=== PATIENT | male | born 1990 | race Hispanic/Latino ===

== ENCOUNTER 2021-09-23 20:19 | Inpatient (IN) | payer OTHER ==
[~2021-09-23] VITALS: Ht 180.3 cm; Wt 129.0 kg
[2021-09-23] MEDS ORDERED: ONDANSETRON 4MG INJ ONE (20:55)
[2021-09-23] MEDS ORDERED: 0.9%NACL 1000ML 1,000 ML IV ONE ×2 (21:00→22:30)
[2021-09-23] MEDS ORDERED: DIAZEPAM 5 MG/ML 2 ML SYG ONE (21:00)
[2021-09-23 21:01] LABS: BASOPHILS % (AUTO) 0.3 % (0.0-5.0); HEMATOCRIT 48.2 % (42-54); LYMPHOCYTES % (AUTO) 6.2 % (21.0-51.0); MEAN CORPUSCULAR HEMOGLOBIN 30.7 pg (27.0-33.0); MEAN CORPUSCULAR HGB CONC 34.4 g/dL (32.0-36.0); MEAN CORPUSCULAR VOLUME 89.1 fL (79-99); MONOCYTES % (AUTO) 6.6 % (3.0-13.0); NEUTROPHILS % (AUTO) 86.6 % (40.0-77.0); PLATELET COUNT (AUTO) 157 K/uL (130-400); RED BLOOD CELL COUNT(AUTO) 5.41 MIL/uL (4.50-6.20); RED CELL DISTRIBUTION WIDTH 12.5 % (11.0-15.5); WHITE BLOOD COUNT (AUTO) 14.9 K/uL (4.8-10.8)
[2021-09-23 21:07] LABS: APPEARANCE,URINE SL CLOUDY (CLEAR); BILIRUBIN,URINE SMALL (NEGATIVE); COLOR,URINE DARK YELLOW (YELLOW); GLUCOSE, URINE (UA) NEGATIVE (NEGATIVE); KETONES,URINE 5 mg/dL (NEGATIVE); LEUKOCYTE ESTERASE ,URINE NEGATIVE (NEGATIVE); NITRATE,URINE NEGATIVE (NEGATIVE); OCCULT BLOOD,URINE LARGE (NEGATIVE); PROTEIN,URINE >=300 mg/dL (NEGATIVE)
[2021-09-23] MEDS: LORAZEPAM 2 MG/ML 1 ML VIAL IVP PRN (21:12)
[2021-09-23 21:17] LABS: BACTERIA,URINE Few /HPF (None Seen); SQUAMOUS EPITHELIAL CELL,UR Few /HPF (0-2)
[2021-09-23 21:18] LABS: HYALINE CASTS, URINE 26-50 /LPF (0-1 /LPF); MUCUS,URINE Few LPF (None Seen)
[2021-09-23 21:22] LABS: CARBON DIOXIDE 24 mmol/L (21-32); CHLORIDE 95 mmol/L (101-111); CREATININE 1.1 mg/dL (0.5-1.5); GLOMERULAR FILTR. RATE CALC 83 mL/min (>60); GLUCOSE,RANDOM 190 mg/dL (70-105); POTASSIUM 3.6 mmol/L (3.5-5.1); SODIUM SERUM 135 mmol/L (136-145); UREA NITROGEN, BLOOD 12 mg/dL (7-18)
[2021-09-23 21:27] LABS: ALANINE AMINOTRANSFERASE 137 U/L (12-78); ALBUMIN 4.2 g/dL (3.5-5.0); ALCOHOL, BLOOD < 3 mg/dL (0-10); AMMONIA 17 umol/L (11-32); ASPARTATE AMINOTRANSFERASE 136 U/L (10-37); TOTAL PROTEIN, SERUM 9.2 g/dL (6.0-8.3)
[2021-09-23 21:27] LABS: AMPHET/METH SCREEN,URINE NEGATIVE (NEGATIVE); BARBITURATE SCREEN, URINE NEGATIVE (NEGATIVE); BENZODIAZEPINES SCREEN,URINE NEGATIVE (NEGATIVE); CANNABINOID SCREEN,URINE POSITIVE (NEGATIVE); COCAINE SCREEN,URINE NEGATIVE (NEGATIVE); OPIATE SCREEN,URINE NEGATIVE (NEGATIVE); PHENCYCLIDINE SCREEN,URINE NEGATIVE (NEGATIVE)
[2021-09-23 21:44] LABS: LIPASE 10139 U/L (114-286)
[2021-09-23] MEDS ORDERED: HALOPERIDOL INJ 5 MG/ML VIAL ONE (21:44)
[2021-09-23] MEDS: HALOPERIDOL INJ 5 MG/ML VIAL IM SCH (21:47)
[2021-09-23] MEDS ORDERED: IOHEXOL 350 MG/ML 100ML INFUS..BTL IV ONE (22:27)
[2021-09-23] MEDS ORDERED: DIAZEPAM 5 MG/ML 2 ML SYG IVP ONE (22:30)
[2021-09-24] VITALS (7 sets, daily range): BP systolic 127–162; BP diastolic 75–112
[2021-09-24] MEDS ORDERED: MORPHINE 4 MG SYG IVP ONE (00:30)
[2021-09-24] MEDS ORDERED: ACETAMINOPHEN 325 MG TAB PO PRN (01:00)
[2021-09-24] MEDS ORDERED: MORPHINE 4 MG SYG IV PRN (01:00)
[2021-09-24] MEDS ORDERED: MORPHINE 2 MG SYG IV PRN (01:00)
[2021-09-24] MEDS: LACTATED RINGERS 1000ML 1,000 ML IV SCH ×4 (01:00→19:37)
[2021-09-24] MEDS ORDERED: ONDANSETRON 4MG INJ IV PRN (01:00)
[2021-09-24] MEDS ORDERED: DIPHENHYDRAMINE HCL 25 MG CAPSULE PO PRN (01:00)
[2021-09-24 01:10] LABS: CHOLESTEROL 288 mg/dL (<200); HDL CHOLESTEROL 125 mg/dL (29-71); LACTATE DEHYDROGENASE 271 U/L (81-234); LDL DIRECT 134 mg/dL (0-99); TRIGLYCERIDES 158 mg/dL (30-200)
[2021-09-24] MEDS: LORAZEPAM 2 MG/ML 1 ML VIAL IVP PRN ×4 (01:46→20:47)
[2021-09-24] MEDS ORDERED: ZOSYN 3.375GM +NS 50ML IV SCH (04:30)
[2021-09-24 06:08] LABS: BASOPHILS % (AUTO) 0.2 % (0.0-5.0); HEMATOCRIT 45.1 % (42-54); LYMPHOCYTES % (AUTO) 7.2 % (21.0-51.0); MEAN CORPUSCULAR HEMOGLOBIN 30.7 pg (27.0-33.0); MEAN CORPUSCULAR HGB CONC 34.1 g/dL (32.0-36.0); MONOCYTES % (AUTO) 9.2 % (3.0-13.0); NEUTROPHILS % (AUTO) 83.1 % (40.0-77.0); PLATELET COUNT (AUTO) 92 K/uL (130-400); RED BLOOD CELL COUNT(AUTO) 5.01 MIL/uL (4.50-6.20); RED CELL DISTRIBUTION WIDTH 12.6 % (11.0-15.5); WHITE BLOOD COUNT (AUTO) 9.4 K/uL (4.8-10.8)
[2021-09-24 06:45] LABS: CREATININE 0.8 mg/dL (0.5-1.5); MAGNESIUM 1.3 mg/dL (1.80-2.40); PHOSPHORUS 2.6 mg/dL (2.5-4.9); POTASSIUM 3.9 mmol/L (3.5-5.1)
[2021-09-24] MEDS: FOLIC ACID 5 MG/ML VIAL IV SCH (08:52)
[2021-09-24] MEDS: FAMOTIDINE 20MG VIAL IV SCH ×2 (08:52→19:37)
[2021-09-24] MEDS ORDERED: THIAMINE HCL 100 MG/ML 2ML VIAL IVP SCH (09:00)
[2021-09-24] MEDS ORDERED: CHLORDIAZEPOXIDE HCL 25 MG CAP ONE (10:50)
[2021-09-24] MEDS: CHLORDIAZEPOXIDE HCL 25 MG CAP PO PRN ×2 (10:53→16:25)
[2021-09-24] MEDS: MAGNESIUM 2GM PREMIX 50ML 50 ML IV PRN (10:53)
[2021-09-24] MEDS ORDERED: PHARMACY COMMUNICATION MISC PRN (11:00)
[2021-09-24] MEDS ORDERED: CHLORDIAZEPOXIDE HCL 25 MG CAP PO PRN (11:00)
[2021-09-24] MEDS ORDERED: MORPHINE 2 MG SYG IVP PRN (12:00)
[2021-09-24 17:44] LABS: HEMOGLOBIN A1C 5.5 % (4.0-6.0)
[2021-09-24 17:46] LABS: CREATININE 0.9 mg/dL (0.5-1.5); MAGNESIUM 1.8 mg/dL (1.80-2.40); POTASSIUM 3.8 mmol/L (3.5-5.1)
[2021-09-24] MEDS: HALOPERIDOL INJ 5 MG/ML VIAL IM SCH (19:10)
[2021-09-25] MEDS: LACTATED RINGERS 1000ML 1,000 ML IV SCH ×2 (01:59→20:53)
[2021-09-25 04:28] VITALS: BP 127/86
[2021-09-25 05:01] LABS: BASOPHILS % (AUTO) 0.3 % (0.0-5.0); EOSINOPHILS % (AUTO) 0.1 % (0.0-8.0); HEMATOCRIT 43.9 % (42-54); LYMPHOCYTES % (AUTO) 12.4 % (21.0-51.0); MEAN CORPUSCULAR HGB CONC 34.2 g/dL (32.0-36.0); MEAN CORPUSCULAR VOLUME 90.7 fL (79-99); NEUTROPHILS % (AUTO) 77.2 % (40.0-77.0); PLATELET COUNT (AUTO) 83 K/uL (130-400); RED BLOOD CELL COUNT(AUTO) 4.84 MIL/uL (4.50-6.20); RED CELL DISTRIBUTION WIDTH 12.5 % (11.0-15.5); WHITE BLOOD COUNT (AUTO) 10.7 K/uL (4.8-10.8)
[2021-09-25 05:21] LABS: ALBUMIN 2.9 g/dL (3.5-5.0); CREATININE 0.8 mg/dL (0.5-1.5); MAGNESIUM 1.6 mg/dL (1.80-2.40); POTASSIUM 3.3 mmol/L (3.5-5.1); TOTAL PROTEIN, SERUM 6.8 g/dL (6.0-8.3)
[2021-09-25] MEDS: MAGNESIUM 2GM PREMIX 50ML 50 ML IV PRN (05:43)
[2021-09-25 07:15] VITALS: BP 131/81
[2021-09-25] MEDS: THIAMINE HCL 100 MG/ML 2ML VIAL IVP SCH (08:55)
[2021-09-25] MEDS: FAMOTIDINE 20MG VIAL IV SCH ×2 (08:55→20:30)
[2021-09-25] MEDS: FOLIC ACID 5 MG/ML VIAL IV SCH (08:55)
[2021-09-25] MEDS: CHLORDIAZEPOXIDE HCL 25 MG CAP PO PRN ×2 (08:56→20:30)
[2021-09-25] MEDS ORDERED: LIDOCAINE HCL-MPF 1% 2ML VIAL IV PRN (10:30)
[2021-09-25] MEDS ORDERED: MAGNESIUM 2GM PREMIX 50ML 50 ML IV PRN (10:30)
[2021-09-25 11:10] VITALS: BP 126/81
[2021-09-25 13:59] LABS: INR 1.13 (0.85-1.15); PROTHROMBIN TIME 12.2 SEC (9.6-11.6)
[2021-09-25 14:00] LABS: PARTIAL THROMBOPLASTIN TIME 27.6 SEC (26.3-35.5)
[2021-09-25 14:05] LABS: CREATININE 0.8 mg/dL (0.5-1.5); POTASSIUM 3.6 mmol/L (3.5-5.1)
[2021-09-25 15:10] VITALS: BP 126/82
[2021-09-25 20:12] VITALS: BP 130/78
[2021-09-25 23:41] VITALS: BP 135/80
[2021-09-26] MEDS: CHLORDIAZEPOXIDE HCL 25 MG CAP PO PRN (02:18)
[2021-09-26] MEDS: LACTATED RINGERS 1000ML 1,000 ML IV SCH ×3 (03:56→21:53)
[2021-09-26 04:46] LABS: BASOPHILS % (AUTO) 0.2 % (0.0-5.0); EOSINOPHILS % (AUTO) 0.2 % (0.0-8.0); HEMATOCRIT 40.7 % (42-54); LYMPHOCYTES % (AUTO) 15.5 % (21.0-51.0); MEAN CORPUSCULAR HEMOGLOBIN 31.2 pg (27.0-33.0); MEAN CORPUSCULAR HGB CONC 33.9 g/dL (32.0-36.0); MEAN CORPUSCULAR VOLUME 92.1 fL (79-99); MONOCYTES % (AUTO) 12.8 % (3.0-13.0); NEUTROPHILS % (AUTO) 70.6 % (40.0-77.0); PLATELET COUNT (AUTO) 90 K/uL (130-400); RED BLOOD CELL COUNT(AUTO) 4.42 MIL/uL (4.50-6.20); RED CELL DISTRIBUTION WIDTH 12.5 % (11.0-15.5); WHITE BLOOD COUNT (AUTO) 12.3 K/uL (4.8-10.8)
[2021-09-26 05:05] VITALS: BP 156/92
[2021-09-26 05:43] LABS: ALBUMIN 2.7 g/dL (3.5-5.0); CREATININE 0.9 mg/dL (0.5-1.5); POTASSIUM 3.2 mmol/L (3.5-5.1); TOTAL PROTEIN, SERUM 6.7 g/dL (6.0-8.3)
[2021-09-26] MEDS: POTASSIUM CHLORIDE 10MEQ/100ML 100 ML IV PRN ×2 (06:15→14:47)
[2021-09-26 07:22] VITALS: BP 135/81
[2021-09-26] MEDS ORDERED: COMPOUND IV REFRIGERATED 1 EACH IVSOLN MISC PRN (08:30)
[2021-09-26] MEDS: FAMOTIDINE 20MG VIAL IV SCH ×2 (09:48→20:34)
[2021-09-26] MEDS: THIAMINE HCL 100 MG/ML 2ML VIAL IVP SCH (09:48)
[2021-09-26] MEDS: FOLIC ACID 5 MG/ML VIAL IV SCH (09:48)
[2021-09-26 12:09] VITALS: BP 135/67
[2021-09-26] MEDS: LORAZEPAM 2 MG/ML 1 ML VIAL IVP PRN (14:46)
[2021-09-26 16:35] VITALS: BP 123/90
[2021-09-26 20:00] VITALS: BP 106/53
[2021-09-27] VITALS (7 sets, daily range): BP systolic 109–138; BP diastolic 52–85
[2021-09-27 05:00] LABS: ALBUMIN 2.4 g/dL (3.5-5.0); CREATININE 0.8 mg/dL (0.5-1.5); MAGNESIUM 1.9 mg/dL (1.80-2.40); POTASSIUM 3.8 mmol/L (3.5-5.1); TOTAL PROTEIN, SERUM 6.3 g/dL (6.0-8.3)
[2021-09-27] MEDS: LACTATED RINGERS 1000ML 1,000 ML IV SCH ×3 (05:19→20:53)
[2021-09-27] MEDS: FAMOTIDINE 20MG VIAL IV SCH ×2 (08:52→20:33)
[2021-09-27] MEDS: THIAMINE HCL 100 MG/ML 2ML VIAL IVP SCH (08:52)
[2021-09-27] MEDS: FOLIC ACID 5 MG/ML VIAL IV SCH (10:26)
[2021-09-27] MEDS: LORAZEPAM 2 MG/ML 1 ML VIAL IVP PRN (10:55)
[2021-09-27] MEDS ORDERED: 0.9% NACL 500ML IV.SOLN 500 ML IV SCH (12:00)
[2021-09-28 03:15] VITALS: BP 135/84
[2021-09-28] MEDS: LACTATED RINGERS 1000ML 1,000 ML IV SCH (04:53)
[2021-09-28 05:38] LABS: ALBUMIN 2.4 g/dL (3.5-5.0); CREATININE 0.7 mg/dL (0.5-1.5); POTASSIUM 3.5 mmol/L (3.5-5.1); TOTAL PROTEIN, SERUM 6.2 g/dL (6.0-8.3)
[2021-09-28 07:25] VITALS: BP 135/102
[2021-09-28] MEDS: FAMOTIDINE 20MG VIAL IV SCH ×2 (07:56→21:31)
[2021-09-28] MEDS: THIAMINE HCL 100 MG/ML 2ML VIAL IVP SCH (07:56)
[2021-09-28] MEDS: 0.9% NACL 500ML IV.SOLN 500 ML IV SCH ×2 (07:58→10:02)
[2021-09-28] MEDS ORDERED: LABETALOL 20MG SYG IV ONE (10:00)
[2021-09-28] MEDS ORDERED: FUROSEMIDE 40MG VIAL IV ONE (10:00)
[2021-09-28] MEDS: LORAZEPAM 2 MG/ML 1 ML VIAL IVP PRN (10:33)
[2021-09-28 11:30] VITALS: BP 150/89
[2021-09-28] MEDS: FOLIC ACID 5 MG/ML VIAL IV SCH (11:36)
[2021-09-28 15:15] VITALS: BP 141/82
[2021-09-28 20:05] VITALS: BP 117/67
[2021-09-29 00:21] VITALS: BP 119/67
[2021-09-29 04:33] VITALS: BP 118/72
[2021-09-29 05:19] LABS: BASOPHILS % (AUTO) 0.4 % (0.0-5.0); EOSINOPHILS % (AUTO) 1.6 % (0.0-8.0); HEMATOCRIT 34.4 % (42-54); LYMPHOCYTES % (AUTO) 23.1 % (21.0-51.0); MEAN CORPUSCULAR HEMOGLOBIN 31.2 pg (27.0-33.0); MEAN CORPUSCULAR HGB CONC 33.4 g/dL (32.0-36.0); MEAN CORPUSCULAR VOLUME 93.2 fL (79-99); MONOCYTES % (AUTO) 20.9 % (3.0-13.0); NEUTROPHILS % (AUTO) 53.5 % (40.0-77.0); PLATELET COUNT (AUTO) 179 K/uL (130-400); RED BLOOD CELL COUNT(AUTO) 3.69 MIL/uL (4.50-6.20); RED CELL DISTRIBUTION WIDTH 12.7 % (11.0-15.5); WHITE BLOOD COUNT (AUTO) 8.2 K/uL (4.8-10.8)
[2021-09-29 05:32] LABS: ALBUMIN 2.5 g/dL (3.5-5.0); CREATININE 0.8 mg/dL (0.5-1.5); MAGNESIUM 2.1 mg/dL (1.80-2.40); TOTAL PROTEIN, SERUM 6.7 g/dL (6.0-8.3)
[2021-09-29] MEDS ORDERED: POTASSIUM CHLORIDE 10% ELIXIR 20 MEQ/15 ML UDCUP PO PRN (06:30)
[2021-09-29] MEDS: KCL 20 MEQ ERTAB PO PRN ×2 (07:02→08:56)
[2021-09-29 08:00] VITALS: BP 132/72
[2021-09-29] MEDS ORDERED: 0.9% NACL 500ML IV.SOLN 500 ML IV SCH (08:30)
[2021-09-29] MEDS: THIAMINE HCL 100 MG/ML 2ML VIAL IVP SCH (08:54)
[2021-09-29] MEDS: FAMOTIDINE 20MG VIAL IV SCH (08:54)
[2021-09-29] MEDS: FOLIC ACID 5 MG/ML VIAL IV SCH (09:05)
== END 2021-09-29 10:30 | disposition home or self-care (01) | DRG 438 ==
LOC: EDH 20:19 → EDHIP 20:20 → 4AH 09-24 01:29 → 3CH 09-27 05:45
PROVIDERS: ADMIT Hospitalist; ATTEND Hospitalist
DX: K85.20 Alcohol induced acute pancreatitis without necrosis or infection (principal); E43 Unspecified severe protein-calorie malnutrition; F10.239 Alcohol dependence with withdrawal, unspecified; E86.0 Dehydration; K76.0 Fatty (change of) liver, not elsewhere classified; K70.10 Alcoholic hepatitis without ascites; D69.6 Thrombocytopenia, unspecified; E66.9 Obesity, unspecified; I10 Essential (primary) hypertension; Z68.39 Body mass index [BMI] 39.0-39.9, adult
CPT/HCPCS: 36415; 70450; 71045; 74177; 76705; 80048; 80053; 80061; 80305; 81001; 82140; 82330; 82746; 83036; 83615; 83690; 83735; 84100; 84425; 84484; 85025; 85610; 85730; 93005; 93306; 93356; G0378; J1630; J1940; J2060; J2270; J2405; J2543; J3360; J3411; J3475; J3490; J7030; J7040; J7120; Q0163; Q9967